=== PATIENT | male | born 1945 | race Caucasian/White ===

== ENCOUNTER → 2018-12-20 | Outpatient (CLI) | payer MEDICARE ==
--- NOTE | 2018-12-20 12:44 | PCVCIMAG ---
EXAM: BILATERAL LOWER EXTREMITY ARTERIAL DUPLEX INDICATION: Peripheral Arterial Disease. Leg pain. FINDINGS: Right Leg: Common and profunda femoral arteries are patent. Increased systolic velocity distal superficial femoral artery consistent with 50% stenosis. Popliteal artery is patent. Occlusion of the peroneal artery and dorsalis pedis. Anterior and posterior tibial arteries are patent. Left Leg: Common and profunda femoral arteries are patent. Superficial femoral artery is patent. Mid popliteal artery 50% stenosis. Anterior tibial, peroneal, and posterior tibial arteries are occluded. IMPRESSION: 50% stenosis distal right superficial femoral artery. 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 50% stenosis mid left popliteal artery. Occlusion of the left infrapopliteal arteries as detailed above. LOC:[id number]
== END | disposition home or self-care (01) ==
LOC: PCVCIMAG 11:25
PROVIDERS: ATTEND Podiatrist Foot & Ankle Surgery
DX: I65.23 Occlusion and stenosis of bilateral carotid arteries (principal); I73.9 Peripheral vascular disease, unspecified
CPT/HCPCS: 93925